=== PATIENT | male | born 1970 | race Caucasian/White ===

== ENCOUNTER 2018-01-30 11:18 | Emergency (ER) | payer OTHER ==
[~2018-01-30] VITALS: Ht 167.6 cm; Wt 86.6 kg
[2018-01-30 11:32] VITALS: Ht 167.6 cm; Wt 86.6 kg
[2018-01-30 14:13] LABS: BASOPHIL % 0.3 % (0-2); PLATELET COUNT 230 x10^3mcL (130-400); RED CELL DISTRIBUTION WIDTH 13.6 % (11.5-14.5)
[2018-01-30 14:22] LABS: CALCIUM 8.2 mg/dL (8.5-10.1); CARBON DIOXIDE 28.2 mmol/L (21-32); CHLORIDE SERUM 100 mmol/L (98-107); CREATININE SERUM 0.9 mg/dL (0.7-1.3); GFR1 > 60 mL/min; GLUCOSE SERUM 266 mg/dL (74-106); POTASSIUM SERUM 3.7 mmol/L (3.5-5.1); SODIUM SERUM 136 mmol/L (136-145)
[2018-01-30 14:27] LABS: ALKALINE PHOSPHATASE 83 U/L (46-116); ALT/SGPT 33 U/L (16-63); AST/SGOT 14 U/L (15-37); BILIRUBIN TOTAL 0.4 mg/dL (0.20-1.00); TOTAL PROTEIN, SERUM 6.3 g/dL (6.4-8.2)
[2018-01-30 14:30] LABS: ALBUMIN 3.2 g/dL (3.4-5.0)
[2018-01-30 19:30] VITALS: BP 144/83
== END 2018-01-30 19:30 | disposition home or self-care (01) ==
LOC: ED 11:18
PROVIDERS: Emergency Medicine
DX: S13.4XXA Sprain of ligaments of cervical spine, initial encounter (principal); R10.31 Right lower quadrant pain; R10.32 Left lower quadrant pain; E11.9 Type 2 diabetes mellitus without complications; M54.5 Low back pain; V49.49XA Driver injured in collision with other motor vehicles in traffic accident, initial encounter; Y93.89 Activity, other specified; Y99.8 Other external cause status; Y92.89 Other specified places as the place of occurrence of the external cause
CPT/HCPCS: 83880; G0480; J3010; J7030; Q0092; Q0162; Q9966; Q9967